=== PATIENT | male | born 1980 | race Caucasian/White ===

== ENCOUNTER → 2018-01-02 07:56 | Outpatient (CLI) | payer OTHER, SELFPAY ==
[2018-01-02 10:00] LABS: Hematocrit 44.2 % (40-54); Mean Corp Hgb Conc 33.9 g/gl (32-36); Mean Corpuscular Hgb 31.3 pg (27.0-32.0); Mean Corpuscular Volume 92.3 fL (80-94); Mean Platelet Vol. 9.4 fl (6.2-12.0); Platelet Count 250 K/mm3 (150-450); RBC Distribution Width CV 11.3 % (11.6-14.6); Red Blood Count 4.79 M/mm3 (4.6-6.2); White Blood Count 5.8 K/mm3 (4.4-11.0)
[2018-01-02 10:07] LABS: Scan Indicated on CBC? Y/N NO
[2018-01-02 10:22] LABS: ALB/GLOB Ratio 1.1 RATIO (0.9-2.4); AST(SGOT) 15 U/L (15-37); Alanine Aminotransfer ALT/SGPT 28 U/L (16-61); Albumin, Serum 3.8 g/dL (3.2-5.0); Alkaline Phosphatase 64 U/L (45-117); Anion Gap 7 (5-15); BUN 9 mg/dL (7-18); BUN/Creat Ratio 8.2 RATIO (10-20); Calcium,Total 8.7 mg/dL (8.5-10.1); Chloride 108 mmol/L (98-107); EST Glomerular Filtration Rate 81 mL/min (>60); Est Glom Filt Rate - Afr Amer 97 mL/min (>60); Globulin 3.5 g/dL (2.2-4.2); Glucose 89 mg/dL (74-106); Potassium 3.7 mmol/L (3.5-5.1); Prolactin < 0.2 ng/mL; Protein, Total 7.3 g/dL (6.4-8.2); Sodium Level 142 mmol/L (136-145); T4 Free Direct 1.19 ng/dL (0.76-1.46)
[2018-01-05 09:52] LABS: Insulin Like Growth Factor 304 ng/mL (83-233)
== END ==
PROVIDERS: Family Provider Family Medicine; PCP Family Medicine; Visit Provider Internal Medicine
DX: E29.1 Testicular hypofunction (principal); E23.7 Disorder of pituitary gland, unspecified
CPT/HCPCS: 36415; 80053; 84146; 84305; 84403; 84439; 85027